=== PATIENT | male | born 1970 | race Caucasian/White ===

== ENCOUNTER 2017-02-09 10:04 | Outpatient (CLI) ==
[2013-03-12 11:36] VITALS: TEMP 97.1
[2016-01-05 08:04] VITALS: BMI 38.7
[2017-02-09 10:22] LABS: BASOPHILS # (AUTO) 0.1 K/uL (0-0.2); BASOPHILS % (AUTO) 0.7 % (0.0-3.0); EOSINOPHILS # (AUTO) 0.4 K/ul (0.0-0.7); EOSINOPHILS % (AUTO) 2.8 % (0.0-7.0); HEMATOCRIT 46.8 % (42.0-52.0); HEMOGLOBIN 15.6 g/dl (14.0-18.0); IMMATURE GRANULOCYTE % (AUTO) 0.4 % (0.0-5.0); LYMPHOCYTES # (AUTO) 2.5 K/uL (0.60-3.4); LYMPHOCYTES % (AUTO) 19.7 (10.0-50.0); MEAN CORPUSCULAR HEMOGLOBIN 29.2 pg (27.0-31.0); MEAN CORPUSCULAR HGB CONC 33.3 (31.8-35.4); MEAN CORPUSCULAR VOLUME 87.5 fl (80.0-94.0); MONOCYTES % (AUTO) 7.6 (0-10); NEUTROPHILS # (AUTO) 8.7 K/ul (2.0-6.9); NEUTROPHILS % (AUTO) 68.8; PLATELET COUNT 286 10^3/uL (140-440); RED BLOOD COUNT 5.35 10^6/ul (4.70-6.10); WHITE BLOOD COUNT 12.68 K/ul (4.2-10.2)
[2017-02-09 10:40] LABS: ALBUMIN 3.7 g/dL (3.4-5.0); ALBUMIN/GLOBULIN RATIO 1.23; ANION GAP 12.1; BILIRUBIN,TOTAL 0.47 mg/dL (0.00-1.20); BUN/CREATININE RATIO 18.82; CALCIUM 9.1 mg/dL (8.2-10.2); CHOL/HDL RATIO 4.2 (4.5-6.4); CREATININE 0.85 mg/dL (0.60-1.10); POTASSIUM 4.1 mmol/L (3.5-5.1); TOTAL PROTEIN 6.7 g/dL (6.4-8.2)
== END 2017-02-09 10:05 | disposition home or self-care (01) ==
LOC: LAB 10:04
PROVIDERS: ATTEND Nurse Practitioner Family
DX: E75.6 Lipid storage disorder, unspecified (principal); I10 Essential (primary) hypertension; E66.9 Obesity, unspecified
CPT/HCPCS: 36415; 80053; 80061; 85025

== ENCOUNTER 2017-06-18 16:44 | Emergency (ER) ==
[2017-06-18 16:47] VITALS: BP 120/84; TEMP 98; BMI 37.5
[2017-06-18] MEDS ORDERED: ZOFRAN 4 MG/2 ML IM STA (17:02)
[2017-06-18] MEDS ORDERED: MORPHINE 10 MG/ML SYRINGE IM STA (17:02)
[2017-06-18 17:14] LABS: BASOPHILS # (AUTO) 0.1 K/uL (0-0.2); BASOPHILS % (AUTO) 0.6 % (0.0-3.0); EOSINOPHILS # (AUTO) 0.4 K/ul (0.0-0.7); EOSINOPHILS % (AUTO) 2.6 % (0.0-7.0); HEMATOCRIT 46.9 % (42.0-52.0); HEMOGLOBIN 16.1 g/dl (14.0-18.0); IMMATURE GRANULOCYTE % (AUTO) 0.3 % (0.0-5.0); LYMPHOCYTES # (AUTO) 2.8 K/uL (0.60-3.4); LYMPHOCYTES % (AUTO) 18.9 (10.0-50.0); MEAN CORPUSCULAR HEMOGLOBIN 29.7 pg (27.0-31.0); MEAN CORPUSCULAR HGB CONC 34.3 (31.8-35.4); MEAN CORPUSCULAR VOLUME 86.4 fl (80.0-94.0); MONOCYTES # (AUTO) 1.1 K/uL (0.4-2.0); NEUTROPHILS # (AUTO) 10.5 K/ul (2.0-6.9); NEUTROPHILS % (AUTO) 70.6; PLATELET COUNT 319 10^3/uL (140-440); RED BLOOD COUNT 5.43 10^6/ul (4.70-6.10); WHITE BLOOD COUNT 14.95 K/ul (4.2-10.2)
[2017-06-18 17:29] LABS: ADD URINE MICROSCOPIC NO; BILIRUBIN,URINE Negative (NEGATIVE); KETONES,URINE Negative (NEGATIVE); LEUKOCYTE ESTERASE ,URINE Negative (NEGATIVE); NITRITE,URINE Negative (NEGATIVE); PROTEIN,URINE Negative (NEGATIVE); URINE, BLOOD Negative (NEGATIVE)
[2017-06-18 17:34] LABS: ALBUMIN/GLOBULIN RATIO 1.18; ANION GAP 13.9; BILIRUBIN,TOTAL 0.56 mg/dL (0.00-1.20); BUN/CREATININE RATIO 16.66; CREATININE 1.02 mg/dL (0.60-1.10); POTASSIUM 3.9 mmol/L (3.5-5.1); TOTAL PROTEIN 7.4 g/dL (6.4-8.2)
--- NOTE | 2017-06-18 17:42 | CT ---
EXAM: CT abdomen pelvis without intravenous contrast 06/18/2017. Sagittal and coronal reformatted i mages obtained HISTORY: Right lower quadrant pain COMPARISON: 04/15/2015 FINDINGS: The liver, gallbladder, adrenal glands and kidneys show no acute process. The spleen and pancreas show no acute abnormality. There is no evidence of bowel obstruction. The appendix is normal. Unremarkable urinary bladder. T here is no free air or free fluid. There is colonic diverticulosis without evidence of diverticuliti s. Chronic degenerative disc disease. Multilevel spinal and neural foraminal narrowing. IMPRESSION: 1. No urinary or bowel obstruction and normal appendix. 2. Diverticulosis without diverticulitis. 3. No acute inflammatory process identified within the abdomen or pelvis within the limitation of a noncontrast enhanced examination.
--- NOTE | 2017-06-18 18:19 | ED.PDOC ---
General ED Provider: Dr. AMBER REDMOND Chief Complaint: Abdominal Pain Stated Complaint: abdominal pain RLQ Time Seen by Physician: 17:00 Mode of Arrival: Walk-In Information Source: Patient Exam Limitations: No limitations [facility] T[facility] Documentation Reviewed and Agree: Yes GI Complaint Exam - Abdominal Pain Complaint/Exam Onset: Gradual Duration: TODAY Symptoms Are: Still present Timing: Constant Initial Severity: Moderate Current Severity: Moderate Location of Pain: RLQ Radiates To: Reports: RLQ Character: Reports: Dull, Aching, Colicky Alleviating: Reports: Medication Associated Signs and Symptoms: Denies: Diaphoresis, Fever, Cough, Chest pain, Dizziness, Back pain, Constipation, Blood in stool, Dysuria, Urinary frequency, Decreased urine output, Decreased appetite, Discharge, Nausea, Vomiting, Diarrhea, Decreased activity Related History: Reports: Similar episode AAA Risk Factors: Reports: Hypertension Cardiac Risk Factors: Reports: Hypertension Testicular Torsion Risk Factors: Reports: None Surgical Obstruction Risk Factors: Reports: None Related Surgical History: Reports: None Abdominal Findings: Present: None Differential Diagnoses: Appendicitis, Bowel Obstruction, Constipation, Diverticulitis, Gastroenteritis, Pancreatitis, Irritable Bowel Syndrome, Renal Colic, Ureteral Stone Review of Systems - Review Of Systems Constitutional: Reports: No symptoms Eyes: Reports: No symptoms Ears, Nose, Mouth, Throat: Reports: No symptoms Respiratory: Reports: No symptoms Cardiac: Reports: No symptoms GI: Reports: Abdominal pain : Reports: No symptoms Musculoskeletal: Reports: No symptoms Skin: Reports: No symptoms Neurological: Reports: No symptoms Endocrine: Reports: No symptoms Hematologic/Lymphatic: Reports: No symptoms All Other Systems: Reviewed and Negative Past Medical History - Past Medical History Previously Healthy: Yes Endocrine: Reports: None Cardiovascular: Reports: Hypertension Respiratory: Reports: None Hematological: Reports: None Gastrointestinal: Reports: None Genitourinary: Reports: None Neuro/Psych: Reports: None, Anxiety (claustophobia) Musculoskeletal: Reports: None Cancer: Reports: None Other Pertinent Past Medical History: note patietn admits right sciatica in past when ct results discussed- has o - Surgical History General Surgical History: Reports: Tonsillectomy, Other (has order for MRI Lumbar Spine, but is too claustophobic) - Family History Family History: Reports: Unknown - Social History Smoking Status: Current every day smoker Hx Substance Use: No Alcohol Screening: None Physical Exam - Physical Exam Appearance: Well-appearing, No pain distress, Well-nourished Eyes: CORNELIUS, EOMI, Conjunctiva clear ENT: Ears normal, Nose normal, Oropharynx normal Respiratory: Airway patent, Breath sounds clear, Breath sounds equal, Respirations nonlabored Cardiovascular: RRR, Pulses normal, No rub, No murmur GI/: Soft, Nontender, No masses, Bowel sounds normal, No Organomegaly Musculoskeletal: Normal strength, ROM intact, No edema, No calf tenderness Skin: Warm, Dry, Normal color Neurological: Sensation intact, Motor intact, Reflexes intact, Cranial nerves intact, Alert, Oriented Psychiatric: Affect appropriate, Mood appropriate Critical Care Note - Critical Care Note Total Time (mins): 0 Course - Course Hematology/Chemistry: 06/18/17 17:10 06/18/17 17:10 Orders, Labs, Meds: Lab Review 06/18/17 06/18/17 06/18/17 17:10 17:10 17:10 WBC 14.95 H RBC 5.43 Hgb 16.1 Hct 46.9 MCV 86.4 MCH 29.7 MCHC 34.3 RDW Coeff of Jewel 14.3 Plt Count 319 Immature Gran % (Auto) 0.3 Neut % (Auto) 70.6 Lymph % (Auto) 18.9 [place] % (Auto) 7.0 Eos % (Auto) 2.6 Baso % (Auto) 0.6 Immature Gran # (Auto) 0.1 Neut # 10.5 H Lymph # 2.8 [place] # 1.1 Eos # 0.4 Baso # 0.1 Sodium 138 Potassium 3.9 Chloride 106 Carbon Dioxide 22 Anion Gap 13.9 BUN 17 Creatinine 1.02 Estimated GFR (MDRD) 78.00 BUN/Creatinine Ratio 16.66 Glucose 100 Calcium 10.0 Total Bilirubin 0.56 AST 27 ALT 19 Alkaline Phosphatase 85 Total Protein 7.4 Albumin 4.0 Globulin 3.4 Albumin/Globulin Ratio 1.18 Amylase 43 Lipase 20 Urine Color Yellow Urine Clarity Clear Urine pH 5.0 Ur Specific [place] 1.025 Urine Protein Negative Urine Glucose (UA) Negative Urine Ketones Negative Urine Blood Negative Urine Nitrite Negative Urine Bilirubin Negative Urine Urobilinogen 0.2 Ur Leukocyte Esterase Negative Orders Category Date Time Status AMYLASE Stat LAB 06/18/17 17:10 Completed CBC W/ AUTO DIFF Stat LAB 06/18/17 17:10 Completed COMPREHENSIVE METABOLIC PANEL Stat LAB 06/18/17 17:10 Completed LIPASE Stat LAB 06/18/17 17:10 Completed URINALYSIS C & S IF INDICATED Stat LAB 06/18/17 17:10 Completed Morphine Sulfate [Morphine 10 mg/ml Syringe] MEDS 06/18/17 17:02 Discontinued 8 mg IM ONCE STA Ondansetron HCl/Pf [Zofran 4 mg/2 ml] MEDS 06/18/17 17:02 Discontinued 4 mg IM ONCE STA CT ABDOMEN/PELVIS WO CONTRAST Stat RADS 06/18/17 17:02 Completed Medications Discontinued Medications Generic Name Dose Route Start Last Admin Trade Name Mayte PRN Reason Stop Dose Admin Morphine Sulfate 8 mg 06/18/17 17:02 06/18/17 17:17 Morphine 10 Mg/Ml Syringe IM 06/18/17 17:03 8 mg ONCE STA Administration Ondansetron HCl 4 mg 06/18/17 17:02 06/18/17 17:16 Zofran 4 Mg/2 Ml IM 06/18/17 17:03 4 mg ONCE STA Administration Vital Signs: Temp Pulse Resp BP Pulse Ox 06/18/17 16:45 98.0 F 81 20 120/84 96 Departure - Departure Time of Disposition: 18:19 Disposition: HOME SELF-CARE Discharge Problem: Abdominal pain Instructions: Abdominal Pain (ED), Acute Abdominal Pain (ED), Diverticulosis ( ED), Diverticulitis (ED), Diverticulitis Diet (ED) Condition: Good Pt referred to PMD for follow-up: Yes Additional Instructions: Please call your Family Physician as soon as possible to schedule a follow-up appointment. Allergies/Adverse Reactions: Allergies prednisone Adverse Reaction (Verified 06/18/17 16:47) problem with urination Home Medications: Ambulatory Orders Naproxen Sodium [Aleve] 220 mg PO BID 11/04/15 Aspirin [Aspirin EC] 325 mg PO DAILYWM 06/18/17
== END 2017-06-18 18:38 | disposition home or self-care (01) ==
LOC: ED 16:44
DX: R10.31 Right lower quadrant pain (principal); I10 Essential (primary) hypertension; F17.210 Nicotine dependence, cigarettes, uncomplicated
CPT/HCPCS: 36415; 80053; 81001; 82150; 83690; 85025; 96372; 99283

== ENCOUNTER 2017-10-12 09:56 | Outpatient (CLI) ==
[2013-03-12 11:36] VITALS: TEMP 97.1
== END 2017-10-12 09:57 | disposition home or self-care (01) ==
LOC: LAB 09:56
PROVIDERS: ATTEND Nurse Practitioner Family
DX: I10 Essential (primary) hypertension (principal)
CPT/HCPCS: 36415; 80053; 80061; 85025

== ENCOUNTER 2017-10-15 15:16 | Outpatient (CLI) ==
[2013-03-12 11:36] VITALS: TEMP 97.1
== END 2017-10-15 15:17 | disposition home or self-care (01) ==
LOC: LAB 15:16
PROVIDERS: ATTEND Nurse Practitioner Family
DX: R39.11 Hesitancy of micturition (principal)
CPT/HCPCS: 36415

== ENCOUNTER 2018-09-13 09:26 | Outpatient (CLI) ==
[2013-03-12 11:36] VITALS: TEMP 97.1
[2018-05-16 11:41] VITALS: BMI 38.7
== END 2018-09-13 09:27 | disposition home or self-care (01) ==
LOC: LAB 09:26 → RHC-LAB 09:27
PROVIDERS: ATTEND Nurse Practitioner Family
DX: I10 Essential (primary) hypertension (principal); E66.9 Obesity, unspecified; Z12.5 Encounter for screening for malignant neoplasm of prostate
CPT/HCPCS: 36415; 80053; 80061; 84443; 85025

== ENCOUNTER 2018-12-05 13:59 | Outpatient (CLI) ==
[2013-03-12 11:36] VITALS: TEMP 97.1
[2018-05-16 11:41] VITALS: BMI 38.7
== END 2018-12-05 14:00 | disposition home or self-care (01) ==
LOC: RHC-LAB 13:59
PROVIDERS: ATTEND Nurse Practitioner Family
DX: R39.11 Hesitancy of micturition (principal)
CPT/HCPCS: 81001

== ENCOUNTER 2019-02-24 09:15 | Outpatient (CLI) ==
[2013-03-12 11:36] VITALS: TEMP 97.1
[2018-05-16 11:41] VITALS: BMI 38.7
== END 2019-02-24 09:16 | disposition home or self-care (01) ==
LOC: RHC-LAB 09:15
PROVIDERS: ATTEND Nurse Practitioner Family
DX: R73.9 Hyperglycemia, unspecified (principal); I10 Essential (primary) hypertension; Z87.891 Personal history of nicotine dependence
CPT/HCPCS: 36415; 80053; 80061; 83037; 85025